=== PATIENT | male | born 2000 | race Caucasian/White ===

== ENCOUNTER 2021-06-19 08:53 | Emergency (ER) | payer OTHER ==
[~2021-06-19] VITALS: Ht 175.3 cm; Wt 68.2 kg
[2021-06-19] MEDS ORDERED: ONDANSETRON 4MG/2ML VIAL IV ONE (09:05)
[2021-06-19] MEDS ORDERED: MORPHINE 2 MG/ML 1ML VIAL (J2270) IV PRN (09:05)
[2021-06-19] MEDS ORDERED: KETOROLAC 30 MG/ML 1ML VIAL IV ONE (09:05)
[2021-06-19] MEDS ORDERED: NS 1,000 ML IV SCH (09:25)
[2021-06-19] MEDS ORDERED: KETAMINE HCL 200 MG/20 ML VIAL IV ONE (09:25)
--- NOTE | 2021-06-19 09:25 | REP ---
INDICATION: trauma. COMPARISON: None. TECHNIQUE: Two views of the left shoulder are presented. AP and tangential scapular Y-views. FINDINGS: There is an anterior inferior glenohumeral dislocation. The acromioclavicular joint is normally aligned. No fracture is seen. The visualized left hemithorax is unremarkable. IMPRESSION: Anterior inferior glenohumeral dislocation left shoulder. <Electronically signed by Houston Ramirez > 06/19/21 0923
[2021-06-19] MEDS: propofoL 200 MG/20 ML VIAL IV.PROC PRN ×2 (09:54→09:58)
--- NOTE | 2021-06-19 10:18 | REP ---
INDICATION: postreduction. COMPARISON: Earlier today TECHNIQUE: Portable post reduction AP view FINDINGS: The glenohumeral and acromioclavicular joints are within normal limits but seen in a limited fashion on the single portable AP view. IMPRESSION: Limited exam indicating successful glenohumeral relocation. Three view shoulder series is suggested. <Electronically signed by Dennis Velez > 06/19/21 1014
[2021-06-19 12:15] VITALS: BP 124/74
== END 2021-06-19 12:15 | disposition home or self-care (01) ==
LOC: EDBD 08:53 → M ED 08:53
DX: S43.005A Unspecified dislocation of left shoulder joint, initial encounter (principal); X58.XXXA Exposure to other specified factors, initial encounter; Y92.59 Other trade areas as the place of occurrence of the external cause; Y93.72 Activity, wrestling; Y99.0 Civilian activity done for income or pay
CPT/HCPCS: 23650; 73020; 73030; 93041; 94760; 96361; 96374; 96375; 99285; J1885; J2270; J2405